=== PATIENT | female | born 1970 | race Caucasian/White ===

== ENCOUNTER 2019-05-24 13:52 | Inpatient (IN) | payer OTHER ==
[2019-05-24 17:04] VITALS: BMI 19.9
--- NOTE | 2019-05-24 18:36 | HP ---
COWS - Scale Resting Pulse: 0= HI 80 or Below Sweatin= Chills/Flushing Restless Observation: 1= Difficult to Sit Still Pupil Size: 2= Moderately Dilated Bone or Joint Aches: 2= Severe Diffuse Aches Runny Nose/ Eye Tearin= Nasal Congestion GI Upset > 30mins: 1= Stomach Cramp Tremor Observation: 2= Slight Tremor Visible Yawning Observation: 0= None Anxiety or Irritability: 1=Feels Anxious/Irritable Goose Flesh Skin: 3=Piloerection COWS Score: 14 CIWA Score - Admission Criteria OASAS Guidelines: Admission for Medically Managed Detox: Requires at least one of the followin. CIWA greater than 12 2. Seizures within the past 24 hours 3. Delirium tremens within the past 24 hours 4. Hallucinations within the past 24 hours 5. Acute intervention needed for co occurring medical disorder 6. Acute intervention needed for co occurring psychiatric disorder 7. Severe withdrawal that cannot be handled at a lower level of care (continued vomiting, continued diarrhea, abnormal vital signs) requiring intravenous medication and/or fluids 8. Admission ROS S - HPI Chief Complaint: I WANT TO STOP Allergies/Adverse Reactions: Allergies Allergy/AdvReac Type Severity Reaction Status Date / Time No Known Allergies Allergy Verified 05/24/19 17:03 History of Present Illness: 18 YEARS OPIATE USE NO HO TX USING 8 BAGS DAILY SINCE STARTED AT AGE 31 DENIES OTHERS SUBSTANCE USE BUT ADMIT OCASIONAL NOMI USE DENIES THAT COCAINE WAS PROBLEMATIC NO ETOH - Ebola screening Have you traveled outside of the country in the last 21 days: No (NN) Have you had contact with anyone from an Ebola affected area: No Do you have a fever: No - Review of Systems Constitutional: Loss of Appetite, Changes in sleep EENT: reports: No Symptoms Reported Respiratory: reports: No Symptoms reported Cardiac: reports: No Symptoms Reported GI: reports: Abdominal cramping : reports: No Symptoms Reported Musculoskeletal: reports: Joint Pain Integumentary: reports: No Symptoms Reported Neuro: reports: Headache Endocrine: reports: No Symptoms Reported Hematology: reports: No Symptoms Reported Psychiatric: reports: Agitated, Anxious Patient History - Patient Medical History Hx Anemia: No Hx Asthma: Yes Hx Chronic Obstructive Pulmonary Disease (COPD): No Hx Cancer: No Hx Cardiac Disorders: No Hx Congestive Heart Failure: No Hx Hypertension: No Hx Hypercholesterolemia: No Hx Pacemaker: No HX Cerebrovascular Accident: No Hx Seizures: No Hx Dementia: No Hx Diabetes: No Hx Gastrointestinal Disorders: No Hx Liver Disease: No Hx Genitourinary Disorders: No Hx Sexually Transmitted Disorders: No Hx Renal Disease (ESRD): No Hx Thyroid Disease: No Hx Human Immunodeficiency Virus (HIV): No Hx Hepatitis C: No Hx Depression: No Hx Suicide Attempt: No Hx Bipolar Disorder: No Hx Schizophrenia: No Other Medical History: ANXIETY DX 2 MOS AGO BUT LONGSTANDING - Patient Surgical History Past Surgical History: No - Reproductive History Patient is a Female of Child Bearing Age (11 -55 yrs old): Yes Last Menstrual Period: 04/25/19 - Smoking Cessation Smoking history: Current some day smoker Aproximately how many cigarettes per day: 20 Initiated information on smoking cessation: No 'Breaking Loose' booklet given: 05/24/19 - Substances abused Heroin Other (specify): sniff Frequency: Daily Amount used: 8 bags Age of first use: 31 Date of last use: 05/23/19 Admission Physical Exam [facility] - Vital Signs Vital Signs: Vital Signs - 24 hr 05/24/19 16:57 Temperature 97.8 F Pulse Rate 75 Respiratory 19 Rate Blood Pressure 114/70 - Physical General Appearance: Yes: Mild Distress, Anxious HEENTM: Yes: EOMI Respiratory: Yes: Chest Non-Tender, Wheezing Neck: Yes: Within Normal Limits Breast: Yes: Breast Exam Deferred Cardiology: Yes: Within Normal Limits, Regular Rhythm, Regular Rate, S1, S2 Abdominal: Yes: Normal Bowel Sounds, Non Tender Genitourinary: Yes: Within Normal Limits Back: Yes: Within Normal Limits Musculoskeletal: Yes: full range of Motion, Gait Steady Extremities: Yes: Within Normal Limits Neurological: Yes: Within Normal Limits, sensitizer II-XII NML intact, Fully Oriented Integumentary: Yes: Within Normal Limits Lymphatic: Yes: Within Normal Limits - Diagnostic (1) Opiate withdrawal Current Visit: Yes Status: Acute (2) Asthma Current Visit: Yes Status: Acute Qualifiers: Asthma severity: mild Asthma persistence: persistent Asthma complication type: with acute exacerbation Qualified Code(s): J45.31 - Mild persistent asthma with (acute) exacerbation Cleared for Admission S - Detox or Rehab [facility] Level of Care: Medically Supervised Detox Regimen/Protocol: Methadone Breathalyzer - Breathalyzer Breathalyzer: 0 Urine Drug Screen - Test Device Lot number: [id number] Expiration date: 01/30/21 - Control Is test valid?: Yes - Results Drug screen NEGATIVE: No Urine drug screen results: NOMI-Cocaine, MOP-Opiates, OXY-Oxycodone Inpatient Rehab Admission - Rehab Decision to Admit Inpatient rehab admission?: No
[2019-05-24] MEDS ORDERED: ACETAMINOPHEN 325 MG TABLET (FP) PO PRN ×2 (18:45)
[2019-05-24] MEDS ORDERED: MAGNESIUM CITRATE 300 ML BOTTLE PO PRN (18:45)
[2019-05-24] MEDS ORDERED: BISMUTH SUBSALICYLATE 524 MG/30 ML UD PO PRN (18:45)
[2019-05-24] MEDS ORDERED: cloNIDine HCL 0.1 MG TABLET PO PRN (18:45)
[2019-05-24] MEDS ORDERED: METHADONE HCL 10 MG TABLET (FOR DETOX USE ONLY) PO ONE (18:45)
[2019-05-24] MEDS ORDERED: MENTHOL/PHENOL 1 EACH UD MM PRN (18:45)
[2019-05-24] MEDS ORDERED: MELATONIN 5 MG TABLETS PO PRN (18:45)
[2019-05-24] MEDS ORDERED: MAGNESIUM HYDROX 2400MG/30ML ORAL SUSPENSION 30 ML CUP PO PRN (18:45)
[2019-05-24] MEDS ORDERED: METHOCARBAMOL 500 MG TABLET PO PRN (18:45)
[2019-05-24] MEDS ORDERED: MAG HYDROX/AL HYDROX/SIMETH 30 ML UNIT-DOSE CUP PO PRN (18:45)
[2019-05-24] MEDS: NICOTINE 14 MG/24 HOURS TOPICAL PATCH TD SCH (19:54)
[2019-05-24] MEDS: IBUPROFEN 400 MG TABLET (FP) PO PRN (21:40)
[2019-05-24] MEDS: THIAMINE HCL 100 MG TABLET (FP) PO SCH (23:56)
[2019-05-25] MEDS: hydrOXYzine PAMOATE 25 MG CAPSULE (FP) PO PRN ×2 (07:59→14:16)
[2019-05-25] MEDS ORDERED: METHADONE HCL 5 MG TABLET (FOR DETOX USE ONLY) PO ONE ×2 (10:00→12:00)
--- NOTE | 2019-05-25 10:32 | EKG ---
Test Reason : Blood Pressure : / mmHG Vent. Rate : 075 BPM Atrial Rate : 075 BPM P-R Int : 156 ms QRS Dur : 122 ms QT Int : 406 ms P-R-T Axes : 073 -42 006 degrees QTc Int : 453 ms NORMAL SINUS RHYTHM POSSIBLE LEFT ATRIAL ENLARGEMENT LEFT AXIS DEVIATION RIGHT BUNDLE BRANCH BLOCK INFERIOR INFARCT , AGE UNDETERMINED ABNORMAL ECG NO PREVIOUS ECGS AVAILABLE Confirmed by ALEJANDRA GOSS MD ([id number]) on 05/25/2019 10:32:11 AM Referred By: Confirmed By:ALEJANDRA GOSS MD
[2019-05-25 10:42] LABS: ALBUMIN 3.3 g/dl (3.4-5.0); BILIRUBIN,TOTAL 0.3 mg/dL (0.2-1); BLOOD UREA NITROGEN 11.1 mg/dL (7-18); CALCIUM 8.2 mg/dL (8.5-10.1); CREATININE 0.7 mg/dL (0.55-1.3); TOT PROT 6.4 g/dl (6.4-8.2)
[2019-05-25 10:47] LABS: HEMATOCRIT 38.7 % (32.4-45.2); HEMOGLOBIN 12.7 GM/dL (10.7-15.3); MCHC 32.8 g/dl (32.0-36.0); MEAN CELL VOLUME 88.3 fl (80-96); MEAN PLT VOLUME 8.6 fl (7.5-11.1); PLATELET COUNT 239 K/MM3 (134-434); RBC 4.38 M/mm3 (3.60-5.2); RDW 15.8 % (11.6-15.6); WHITE BLOOD COUNT 6.2 K/mm3 (4.0-10.0)
[2019-05-25] MEDS: PRENATAL VITAMINS W/ FOLIC ACID TABLET (FP) PO SCH (10:55)
[2019-05-25] MEDS: predniSONE 20 MG TABLET (UD) PO SCH (10:55)
[2019-05-25] MEDS: NICOTINE 14 MG/24 HOURS TOPICAL PATCH TD SCH (10:56)
[2019-05-25] MEDS: ALBUTEROL SO4 8 GM HFA INHALER IH PRN ×3 (10:57→21:23)
[2019-05-25] MEDS ORDERED: METHADONE HCL 10 MG TABLET (FOR DETOX USE ONLY) PO ONE (11:30)
[2019-05-25] MEDS ORDERED: ONDANSETRON *ODT* 4 MG TABLET SL PRN (12:22)
[2019-05-25] MEDS ORDERED: P-EPHED 60MG/TRIPROLIDI 2.5MG TABLET PO PRN (12:25)
--- NOTE | 2019-05-25 12:25 | PN ---
S COWS - Scale Resting Pulse: 1= [place] 81-100 Sweatin=Flushed/Facial Moisture Restless Observation: 1= Difficult to Sit Still Pupil Size: 0= Normal to Room Light Bone or Joint Aches: 2= Severe Diffuse Aches Runny Nose/ Eye Tearin= Runny Nose/Eyes GI Upset > 30mins: 2= Nausea/Diarrhea Tremor Observation of Outstretched Hands: 1= Tremor [place], Not Seen Yawning Observation: 0= None Anxiety or Irritability: 2=Irritable/Anxious Goose Flesh Skin: 0=Smooth Skin COWS Score: 13 BHS Progress Note (SOAP) Subjective: nasal congestions sweats chills body aches anxiety irritable the dose of methadone is not hold me; i feel sick. Objective: 05/25/19 12:23 Vital Signs Temperature 97.5 F L 05/25/19 11:09 Pulse Rate 99 H 05/25/19 11:09 Respiratory Rate 18 05/25/19 11:09 Blood Pressure 127/76 05/25/19 11:09 O2 Sat by Pulse Oximetry (%) Laboratory Tests 05/24/19 05/25/19 05/25/19 18:17 08:30 08:30 WBC 6.2 RBC 4.38 Hgb 12.7 Hct 38.7 MCV 88.3 MCH 29.0 MCHC 32.8 RDW 15.8 H Plt Count 239 MPV 8.6 Sodium 139 Potassium 4.0 Chloride 105 Carbon Dioxide 26 Anion Gap 8 BUN 11.1 Creatinine 0.7 Est GFR (CKD-EPI)AfAm 117.91 Est GFR (CKD-EPI)NonAf 101.74 Random Glucose 112 H Calcium 8.2 L Total Bilirubin 0.3 AST 13 L ALT 17 Alkaline Phosphatase 55 Total Protein 6.4 Albumin 3.3 L POC Urine HCG, Qual Negative RPR Titer 05/25/19 08:30 WBC RBC Hgb Hct MCV MCH MCHC RDW Plt Count MPV Sodium Potassium Chloride Carbon Dioxide Anion Gap BUN Creatinine Est GFR (CKD-EPI)AfAm Est GFR (CKD-EPI)NonAf Random Glucose Calcium Total Bilirubin AST ALT Alkaline Phosphatase Total Protein Albumin POC Urine HCG, Qual RPR Titer Nonreactive labs noted aaox3 ambulating no acute distress Assessment: 05/25/19 12:24 withdrawals Plan: continue detox increase fluids zofran sl prn acitified prn valium 10mg q4hrs prn while in detox only methadone 5mg x one
[2019-05-25] MEDS: diazePAM 5 MG TABLET PO PRN (14:16)
[2019-05-25] MEDS: THIAMINE HCL 100 MG TABLET (FP) PO SCH (22:06)
[2019-05-26] MEDS ORDERED: METHADONE HCL 10 MG TABLET (FOR DETOX USE ONLY) PO ONE (10:00)
[2019-05-26] MEDS: predniSONE 20 MG TABLET (UD) PO SCH (10:32)
[2019-05-26] MEDS: PRENATAL VITAMINS W/ FOLIC ACID TABLET (FP) PO SCH (10:33)
[2019-05-26] MEDS: NICOTINE 14 MG/24 HOURS TOPICAL PATCH TD SCH (10:33)
--- NOTE | 2019-05-26 11:10 | PN ---
BHS COWS - Scale Resting Pulse: 1= [place] 81-100 Sweatin= Chills/Flushing Restless Observation: 1= Difficult to Sit Still Pupil Size: 0= Normal to Room Light Bone or Joint Aches: 1= Mild Discomfort Runny Nose/ Eye Tearin= None GI Upset > 30mins: 0= None Tremor Observation of Outstretched Hands: 1= Tremor [place], Not Seen Yawning Observation: 1= 1-2x During Session Anxiety or Irritability: 1=Feels Anxious/Irritable Goose Flesh Skin: 0=Smooth Skin COWS Score: 7 BHS Progress Note (SOAP) Subjective: sweats restless anxiety Objective: 05/26/19 11:06 Vital Signs Temperature 96.8 F L 05/26/19 06:48 Pulse Rate 75 05/26/19 06:48 Respiratory Rate 18 05/26/19 06:48 Blood Pressure 119/75 05/26/19 06:48 O2 Sat by Pulse Oximetry (%) Laboratory Tests 05/24/19 05/25/19 05/25/19 18:17 08:30 08:30 WBC 6.2 RBC 4.38 Hgb 12.7 Hct 38.7 MCV 88.3 MCH 29.0 MCHC 32.8 RDW 15.8 H Plt Count 239 MPV 8.6 Sodium 139 Potassium 4.0 Chloride 105 Carbon Dioxide 26 Anion Gap 8 BUN 11.1 Creatinine 0.7 Est GFR (CKD-EPI)AfAm 117.91 Est GFR (CKD-EPI)NonAf 101.74 Random Glucose 112 H Calcium 8.2 L Total Bilirubin 0.3 AST 13 L ALT 17 Alkaline Phosphatase 55 Total Protein 6.4 Albumin 3.3 L POC Urine HCG, Qual Negative RPR Titer 05/25/19 08:30 WBC RBC Hgb Hct MCV MCH MCHC RDW Plt Count MPV Sodium Potassium Chloride Carbon Dioxide Anion Gap BUN Creatinine Est GFR (CKD-EPI)AfAm Est GFR (CKD-EPI)NonAf Random Glucose Calcium Total Bilirubin AST ALT Alkaline Phosphatase Total Protein Albumin POC Urine HCG, Qual RPR Titer Nonreactive labs noted aaox3 ambulating no acute distress Assessment: 05/26/19 11:08 mild withdrawals Plan: continue detox increase fluids d/c in am
[2019-05-26] MEDS: diazePAM 5 MG TABLET PO PRN (18:28)
[2019-05-26] MEDS: IBUPROFEN 400 MG TABLET (FP) PO PRN (18:29)
[2019-05-26] MEDS: THIAMINE HCL 100 MG TABLET (FP) PO SCH (21:57)
[2019-05-27] MEDS: ALBUTEROL SO4 8 GM HFA INHALER IH PRN (05:21)
[2019-05-27] MEDS ORDERED: METHADONE HCL 5 MG TABLET (FOR DETOX USE ONLY) PO ONE (06:00)
[2019-05-27 06:41] VITALS: BP 130/85; PULSE 87; TEMP 97.7
--- NOTE | 2019-05-27 10:23 | DS ---
[facility] Detox Discharge Summary Admission Date: 05/24/19 Discharge Date: 05/27/19 - History Present History: Opioid Dependence - Physical Exam Results Vital Signs: Vital Signs Temperature 97.7 F 05/27/19 06:41 Pulse Rate 87 05/27/19 06:41 Respiratory Rate 20 05/27/19 06:41 Blood Pressure 130/85 05/27/19 06:41 O2 Sat by Pulse Oximetry (%) Pertinent Admission Physical Exam Findings: pt arrived in withdrawals Laboratory Tests 05/24/19 05/25/19 05/25/19 18:17 08:30 08:30 WBC 6.2 RBC 4.38 Hgb 12.7 Hct 38.7 MCV 88.3 MCH 29.0 MCHC 32.8 RDW 15.8 H Plt Count 239 MPV 8.6 Sodium 139 Potassium 4.0 Chloride 105 Carbon Dioxide 26 Anion Gap 8 BUN 11.1 Creatinine 0.7 Est GFR (CKD-EPI)AfAm 117.91 Est GFR (CKD-EPI)NonAf 101.74 Random Glucose 112 H Calcium 8.2 L Total Bilirubin 0.3 AST 13 L ALT 17 Alkaline Phosphatase 55 Total Protein 6.4 Albumin 3.3 L POC Urine HCG, Qual Negative RPR Titer 05/25/19 08:30 WBC RBC Hgb Hct MCV MCH MCHC RDW Plt Count MPV Sodium Potassium Chloride Carbon Dioxide Anion Gap BUN Creatinine Est GFR (CKD-EPI)AfAm Est GFR (CKD-EPI)NonAf Random Glucose Calcium Total Bilirubin AST ALT Alkaline Phosphatase Total Protein Albumin POC Urine HCG, Qual RPR Titer Nonreactive pt is aaox3 ambulating no acute distress - Treatment Hospital Course: Detox Protocol Followed, Detoxed Safely, Responded well, Discharged Condition Good, Rehab Referral Accepted - Medication Discharge Medications: Ambulatory Orders Albuterol Sulfate [Albuterol Sulfate Hfa] 2 puff IH PRN 05/24/19 Prednisone [Prednisone 50 MG TABLETS] 50 mg PO DAILY 05/24/19 - Diagnosis (1) Asthma Status: Chronic Qualifiers: Asthma severity: mild Asthma persistence: persistent Asthma complication type: with acute exacerbation Qualified Code(s): J45.31 - Mild persistent asthma with (acute) exacerbation (2) Opiate withdrawal Status: Chronic - AMA Did Patient Leave Against Medical Advice: No
== END 2019-05-27 09:05 | disposition home or self-care (01) | DRG 773 ==
LOC: YASAS 13:52 → Y6N 18:34
PROVIDERS: ADMIT Surgery; ATTEND Surgery
PROC: HZ2ZZZZ Detoxification Services for Substance Abuse Treatment (ICD-10-PCS; principal; 2019-05-24)
DX: F11.23 Opioid dependence with withdrawal (principal); F17.210 Nicotine dependence, cigarettes, uncomplicated; J45.31 Mild persistent asthma with (acute) exacerbation
CPT/HCPCS: 36415; 80053; 81025; 85027; 86593; 93005; 93010; Q0162